=== PATIENT | male | born 1990 | race Caucasian/White ===

== ENCOUNTER 2021-02-19 17:48 | Emergency (ER) | payer MEDICAID ==
[~2021-02-19] VITALS: Ht 188 cm; Wt 111.2 kg
[2021-02-19 18:04] VITALS: BP 134/85
--- NOTE | 2021-02-19 20:16 | NUR ---
pt is 30 yo male would like to start suboxone, last used heroin this am, wants info regarding clinic to follow up with
== END 2021-02-19 20:53 | disposition left against medical advice (07) ==
LOC: ER 17:50
DX: F11.129 Opioid abuse with intoxication, unspecified (principal); Z53.21 Procedure and treatment not carried out due to patient leaving prior to being seen by health care provider

== ENCOUNTER 2021-06-20 14:04 | Emergency (ER) | payer MEDICAID ==
[~2021-06-20] VITALS: Ht 193 cm; Wt 104.5 kg
[2021-06-20 14:16] VITALS: BP 173/93
== END 2021-06-20 18:13 | disposition home or self-care (01) ==
LOC: ER 14:05
DX: M79.89 Other specified soft tissue disorders (principal); M79.604 Pain in right leg
CPT/HCPCS: 93971; 99284